=== PATIENT | male | born 1985 | race Two or more races ===

== ENCOUNTER 2019-06-07 16:52 | Emergency (ER) | payer MEDICAID ==
[~2019-06-07] VITALS: Ht 172.7 cm; Wt 77.1 kg
--- NOTE | 2019-06-07 17:10 | NUR ---
pt ambulating with steady gait. A&O x4. c/o dizziness. per pt was driving and felt like he was about to pass out. denies LOC. speech clear, able to make needs known, able to follow commands. Breathing even and unlabored, denies SOB. Pulses palpable, cap refill <3 sec. denies any /GI distress. fall precautions observed. call light within reach, bed low, siderails up x2
--- NOTE | 2019-06-07 17:25 | NUR ---
ERMD at bedside for MSE
[2019-06-07 17:41] LABS: BASOPHILS # (AUTO) 0.1 K/uL (0.0-8.0); BASOPHILS % (AUTO) 0.8 % (0.0-2.0); EOSINOPHILS # (AUTO) 0.2 K/uL (0.0-0.7); EOSINOPHILS % (AUTO) 2.1 % (0.0-7.0); HEMATOCRIT 45.9 % (36.7-47.1); HEMOGLOBIN 15.4 g/dL (12.5-16.3); LYMPHOCYTES # (AUTO) 3.1 K/uL (20.0-40.0); LYMPHOCYTES % (AUTO) 35.8 % (20.5-51.5); MEAN CORPUSCULAR HGB CONC 34 g/dL (32.5-36.3); MEAN CORPUSCULAR VOLUME 86.3 fL (73.0-96.2); MONOCYTES # (AUTO) 0.6 K/uL (2.0-10.0); MONOCYTES % (AUTO) 7.2 % (0.0-11.0); NEUTROPHILS # (AUTO) 4.8 K/uL (1.8-8.9); NEUTROPHILS % (AUTO) 54.1 % (38.5-71.5); PLATELET COUNT (AUTO) 187 K/uL (152-348); RED BLOOD CELL COUNT(AUTO) 5.32 MIL/uL (4.06-5.63); WHITE BLOOD COUNT (AUTO) 8.8 K/uL (3.6-10.2)
[2019-06-07 17:45] LABS: POTASSIUM 3.9 mmol/L (3.5-5.1)
[2019-06-07 18:04] VITALS: BP 143/69
--- NOTE | 2019-06-07 18:13 | NUR ---
Patient discharged to home in stable conditon. Written and verbal after care instructions given. Patient verbalizes understanding of instructions. pt ambulated in steady gait
== END 2019-06-07 18:02 | disposition home or self-care (01) ==
LOC: ER 16:56
DX: R42 Dizziness and giddiness (principal); F41.9 Anxiety disorder, unspecified
CPT/HCPCS: 36415; 85025; A4663